=== PATIENT | male | born 1980 | race Two or more races ===

== ENCOUNTER 2021-09-27 12:47 | Emergency (ER) | payer MEDICAID, SELFPAY ==
[2021-09-27 12:51] VITALS: BP 193/111; PULSE 114; RESP 18; TEMP 36.9; O2SAT 99
[2021-09-27 13:49] VITALS: BP 193/111; PULSE 102; RESP 17; TEMP 36.9; O2SAT 99
--- NOTE | 2021-09-27 15:06 | ED.URI ---
HPI - URI/Sore Throat General Chief Complaint: Upper Respiratory Infection Stated Complaint: uri Time Seen by Provider: 09/27/21 13:50 Source: patient Mode of arrival: ambulatory Limitations: no limitations History of Present Illness HPI Narrative: 41-year-old with no major medical problems here with complaints of flulike symptoms for past few days. Patient states the first 2 days he had fever since last night he had not spiked a fever complains of sore throat and body aches at this time. He denies cough or shortness of breath. He also mentions that he has been checking his blood oxygen levels which are about 95 to 100%. MD elicited complaint: fever, cough, sore throat and nasal congestion Onset (ago): day(s) (3) Severity: mild Exacerbating factors: nothing Relieving factors: nothing Associated symptoms: fever Treatments prior to arrival: none Related Data Home Medications Medication Instructions Recorded Confirmed No Home Medications 09/27/21 09/27/21 Allergies Allergy/AdvReac Type Severity Reaction Status Date / Time No Known Allergies Allergy Verified 09/27/21 13:44 Review of Systems Review of Systems: All systems reviewed & are unremarkable except as noted in HPI and below Constitutional: Constitutional: Reports no additional constitutional complaints Eyes: Eyes: Reports no additional eye complaints ENT: Reports system reviewed and no additional complaints, except as documented Cardiovascular: Cardiovascular: Reports no additional cardiovascular complaints Respiratory: Respiratory: Reports as per HPI Gastrointestinal: Gastrointestinal: Reports no additional gastrointestinal complaints Musculoskeletal: Musculoskeletal: Reports no additional musculoskeletal complaints Integumentary/Breasts: Skin/Breast: Reports system reviewed and no additional complaints, except as docu Neurologic: Reports system reviewed and no additional complaints, except as documented Exam Narrative: GENERAL: Well-appearing, well-nourished, and in no acute distress. HEAD: Normocephalic, atraumatic. EYES: PERRLA and EOMI.. NECK: Supple. CHEST: Clear to auscultation. No respiratory distress. HEART: Regular rate and rhythm. No murmur heard. Normal peripheral pulses. EXTREMITIES: Normal range of motion. No edema. SKIN: Warm, dry, no rash. NEURO: No focal deficits. Alert and oriented x3. PSYCH: Normal mood and affect. Course Course Emergency Course: Inform patient about influenza screen will do RT-PCR for Covid. Advised him to stay quarantine till then. Vital Signs Vital signs: Vital Signs Temperature 36.9 C 09/27/21 12:51 Pulse Rate 114 H 09/27/21 12:51 Respiratory Rate 18 09/27/21 12:51 Blood Pressure 193/111 H 09/27/21 12:51 Pulse Oximetry 99 09/27/21 12:51 Temperature 36.9 C 09/27/21 13:49 Pulse Rate 102 H 09/27/21 13:49 Respiratory Rate 17 09/27/21 13:49 Blood Pressure 193/111 H 09/27/21 13:49 Pulse Oximetry 99 09/27/21 13:49 MDM - URI/Sore Throat Lab Data Labs: Influenza A Screen Negative Reference Range: Negative Influenza B Screen Negative Reference Range: Negative Discharge Plan Discharge Clinical Impression: Acute viral syndrome Patient Disposition: Home, Self-Care Condition: Stable Instructions: Antibiotic Form, Viral Syndrome (ED) Additional Instructions: Drink plenty of fluids take Tylenol ibuprofen for fever body aches, stay quarantine until your Covid results are out. Prescriptions: No Action No Home Medications RF: 0 Follow-up/Referrals: Nelson Darby MD [Physician] - PHYSICIAN,BOTTLE BOOTH ATTENDANT [Primary Care Provider] - Time of Disposition: 15:09
[2021-09-27 15:20] VITALS: BP 180/72; PULSE 87; RESP 18; TEMP 36.9; O2SAT 97
[2021-09-28 02:21] LABS: SARS-CoV-2 RNA PCR Positive
== END 2021-09-27 15:21 | disposition home or self-care (01) ==
PROVIDERS: Emergency Provider Family Medicine
DX: U07.1 COVID-19 (principal)
CPT/HCPCS: 87804; 99283; C9803; U0003; U0005

== ENCOUNTER 2021-10-02 19:28 | Emergency (ER) | payer MEDICAID, SELFPAY ==
--- NOTE | 2021-10-02 19:36 | PC.NURSE ---
Pt walks out prior to being triaged.
== END 2021-10-03 04:44 | disposition left against medical advice (07) ==
LOC: ANHED 19:44
DX: Z53.21 Procedure and treatment not carried out due to patient leaving prior to being seen by health care provider (principal)
CPT/HCPCS: 99199

== ENCOUNTER 2021-10-03 02:47 | Emergency (ER) | payer MEDICAID, SELFPAY ==
[2021-10-03] VITALS (31 sets, daily range): BP systolic 127–172; BP diastolic 81–103; PULSE 88–133; RESP 11–25; TEMP 36.6–37.9; O2SAT 93–98
--- NOTE | ~2021-10-03 | XR_ITS ---
EXAMINATION: XR chest 1V portable DATE: 10/03/2021 03:48 INDICATION: Chest pain. TECHNIQUE: A single frontal view of the chest was obtained on 2 radiographs. COMPARISON: Chest CT 10/03/2021 FINDINGS: There are patchy airspace opacities in all right lung zones and left mid and lower lung zon es. No pleural effusion or pneumothorax. The heart size is normal. IMPRESSION: 1. Diffuse lung disease, right worse than left, consistent with COVID-19 pneumonia. Reviewed, dictated and finalized at [facility]. [employer] IMPRESSION: 1. Diffuse lung disease, right worse than left, consistent with COVID-19 pneumo raymundo.
--- NOTE | ~2021-10-03 | CT_ITS ---
EXAMINATION: CTA chest PE protocol DATE: 10/03/2021 06:09 INDICATION: Shortness of breath. Elevated d-dimer. Covid-positive on 09/27/2021 TECHNIQUE: Computed tomography angiography (CTA) of the chest was performed with 100 mL Omnipaque-350 intravenous contrast timed to evaluate the pulmonary arteries. Coronal maximum intensity projection 3D-reconstructions were created by the technologist. Automated exposure control and iterative reconst ruction technique were employed. Exam dose: 532.80 mGy-cm total exam DLP. COMPARISON: Portable AP chest on 09/2021 FINDINGS: There is diagnostic contrast enhancement of the pulmonary arteries and no evidence of pulmo nary embolism. No thoracic aortic aneurysm or dissection. Normal heart size. No pericardial or pleural effusion. There are scattered patchy infiltrates throughout all lobes of both lungs, consistent with bilateral Covid pneumonia. No hilar or mediastinal mass lesion or lymphadenopathy. Small sliding hiatal hernia. Adrenal glands are normal. Included upper abdominal structures are unremarkable. Skeletal structures are unremarkable. IMPRESSION: Scattered patchy bilateral pulmonary infiltrates consistent with bilateral Covid pneumon ia No evidence of pulmonary embolism Small sliding hiatal hernia Reviewed, dictated and finalized at [facility]. Reviewed, dictated and finalized at location [facility]. 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
--- NOTE | 2021-10-03 03:22 | ED.GENADULT ---
HPI - General Adult General Chief complaint: Upper Respiratory Infection Stated complaint: COVID + 09/25, my heart is beating hard Time Seen by Provider: 10/03/21 03:18 Source: patient Mode of arrival: ambulatory Limitations: no limitations History of Present Illness HPI narrative: Patient is a 41-year-old male complaining of elevated blood pressure and palpitations started today. Patient states that his palpitations resolved. Patient denies any chest pain, shortness of breath, abdominal pain, nausea, vomiting, or diaphoresis. Related Data Allergies Allergy/AdvReac Type Severity Reaction Status Date / Time No Known Allergies Allergy Verified 10/03/21 02:58 Review of Systems Review of Systems: All systems reviewed & are unremarkable except as noted in HPI and below Constitutional: Constitutional: Denies body ache(s), Denies chills, Denies excessive sweating, Denies fatigue, Denies fever(s), Denies headache(s), Denies lethargy, Denies malaise, Denies weakness and Denies weight loss Eyes: Eyes: Denies blurry vision, Denies change in vision and Denies loss of vision ENT: Denies dizziness, Denies ear discharge, Denies headache(s), Denies lip swelling, Denies epistaxis, Denies nasal congestion, Denies neck pain, Denies throat swelling and Denies tongue swelling Cardiovascular: Cardiovascular: Denies chest pain, Denies chest pain at rest, Denies chest pain with activity, Denies diaphoresis, Denies edema, Denies irregular heart rhythm, Denies lightheadedness, Denies dyspnea and Denies dyspnea on exertion Respiratory: Respiratory: Denies chest congestion, Denies cough, Denies hemoptysis, Denies dyspnea and Denies dyspnea on exertion Gastrointestinal: Gastrointestinal: Denies abdominal pain, Denies melena, Denies hematochezia, Denies diarrhea, Denies nausea, Denies vomiting and Denies hematemesis Musculoskeletal: Musculoskeletal: Denies abnormal gait, Denies deformity, Denies joint swelling, Denies limited range of motion, Denies neck pain and Denies numbness Neurologic: Denies Abnormal speech present, Denies abnormal gait, Denies confusion, Denies dizziness, Denies headache(s), Denies focal weakness, Denies loss of vision, Denies numbness, Denies Other visual disturbances, Denies Sensory deficit (Neuro) and Denies weakness Psychiatric: Psychiatric: Denies confusion, Denies depression, Denies auditory hallucinations, Denies homicidal ideation and Denies suicidal ideation Endocrine: Endocrine: Denies cold intolerance, Denies excessive sweating, Denies fatigue, Denies heat intolerance and Denies palpitations Hematologic/Lymphatic: Hematologic/Lymphatic: Denies easy bleeding and Denies easy bruising Allergic/Immunologic: Allergic/Immunologic: Denies lip swelling, Denies throat swelling and Denies tongue swelling PMFSH Comments Past medical history: None Family history: Hypertension Social history: Non-smoker no EtOH or drug use Exam Const: General: cooperative, healthy appearing, comfortable, no acute distress, well developed, alert and awake; No confusion Orientation/consciousness: oriented to person, oriented to place, oriented to time, patient oriented x3 and No confusion Limitations: no limitations HENMT: Head: normal to inspection, normocephalic and atraumatic Ears: hearing grossly normal bilaterally, TM normal on the right and TM normal on the left General nose exam: Normal external nose present, Normal nares present and No nasal discharge present Face and sinus: normal facial exam Mouth: Yes Normal oral and palatal mucosa present, Yes lip normal, Yes tongue normal and Yes oropharynx normal Throat: posterior oropharynx normal, tonsils normal and uvula midline Eyes: General: appearance normal, both eyes and all related structures Pupils: Equal, round and reactive pupils present EOM: EOMs intact bilaterally Neck: Neck: normal visual inspection, full ROM, no lymphadenopathy and no meningeal signs Chest: Chest palpation & inspec
--- NOTE | 2021-10-03 03:28 | ECG_ITS ---
Measurements Intervals [place] Rate: 111 P: 73 RI: 139 QRS: 12 QRSD: 91 T: -22 QT: 310 QTc: 423 Interpretive Statements SINUS TACHYCARDIA POSSIBLE LEFT ATRIAL ENLARGEMENT BORDERLINE T WAVE ABNORMALITY- INF/LAT LEADS BASELINE ARTIFACT- I, II, III, AVR, AVL, AVF ABNORMAL ECG Electronically Signed On 10-03-2021 6:25:34 MANAGER ENGLISH by Efrain Mckeon D.O.
[2021-10-03] MEDS: ACETAMINOPHEN 500 MG TABLET 1000 MG PO (04:10)
[2021-10-03] MEDS: SODIUM CHLORIDE 0.9% IV 1,000 ML 999 ML IV CONT (04:11)
[2021-10-03 04:14] LABS: Basophils Percent Auto 0.2 % (0.2-1.2); Hematocrit 44.9 % (42.0-52.0); Hemoglobin 15.9 g/dL (14.0-18.0); Immature Granulocyte Absolute 0.03 K/mm3 (0.00-0.031); Immature Granulocyte Percent A 0.3 % (0-0.5); Immature Platelet Fraction Pct 5.7 % (0.9-11.2); Lymphocytes Absolute Auto 1.56 K/mm3 (0.9-3.2); Lymphocytes Percent Auto 17.5 % (18.3-44.2); Mean Corpuscular HGB Conc 35.4 g/dl (32-36); Mean Corpuscular Hemoglobin 28.4 pg (26-34); Mean Corpuscular Volume 80.3 fl (80-100); Monocytes Absolute Auto 1.2 K/mm3 (0.1-0.6); Monocytes Percent Auto 13.1 % (2.6-8.5); Neutrophils Absolute Auto 6.1 K/mm3 (1.3-6.7); Neutrophils Percent Auto 68.9 % (45.5-73.1); Platelet Count Result 146 k/mm3 (150-375); Red Blood Count 5.59 M/mm3 (4.6-6.20); Red Cell Distribution Width 12.2 % (11.5-14.5); White Blood Count 8.9 K/mm3 (4.5-10.0)
[2021-10-03 04:23] LABS: Alanine Aminotransferase 38 U/L (4-50); Albumin Level 4.5 g/dL (3.5-5.1); Alkaline Phosphatase 48 U/L (38-126); Anion Gap 12 mmol/L (8-16); Aspartate Amino Transferase 40 U/L (17-59); Bilirubin,Total 0.5 mg/dL (0.2-1.3); Blood Urea Nitrogen 10 mg/dL (9-20); Calcium 8.9 mg/dL (8.4-10.2); Carbon Dioxide 25 mmol/L (22-30); Chloride 97 mmol/L (98-107); Estimated CRCL calculation 116 ml/min; Estimated Glomerular Filt Rate > 60; Glucose 142 mg/dL (65-110); Potassium 3.6 mmol/L (3.4-5.0); Sodium 134 mmol/L (137-145)
[2021-10-03 04:24] LABS: D Dimer 0.82 ug/mL (<0.48)
[2021-10-03 04:35] LABS: Troponin I < 0.012 ng/mL (0.000-0.034)
== END 2021-10-03 07:30 | disposition home or self-care (01) ==
PROVIDERS: Emergency Provider Emergency Medicine
DX: U07.1 COVID-19 (principal); J12.82 Pneumonia due to coronavirus disease 2019; R00.2 Palpitations; R03.0 Elevated blood-pressure reading, without diagnosis of hypertension; R00.0 Tachycardia, unspecified; R94.31 Abnormal electrocardiogram [ECG] [EKG]
CPT/HCPCS: 36415; 71045; 71275; 80053; 84484; 85025; 85055; 85380; 93005; 96360; 96361; 99284; A9270; J7030; Q9967

== ENCOUNTER 2021-10-05 18:24 | Emergency (ER) | payer MEDICAID, SELFPAY ==
[2021-10-05] VITALS (7 sets, daily range): BP systolic 144–184; BP diastolic 90–95; PULSE 102–129; RESP 14–22; TEMP 36.6–37; O2SAT 95
--- NOTE | ~2021-10-05 | XR_ITS ---
EXAMINATION: XR chest 1V portable EXAM DATE: 10/05/2021 20:40 INDICATION: Chest Pain, COVID +, SOB TECHNIQUE: Portable AP frontal chest x-ray was obtained. Comparison is made to prior examination from 10/03/2021. FINDINGS: There is moderate amount of right-sided, small to moderate amount of left-sided ill-defined peripheral predominant airspace disease, distribution is consistent with COVID pneumonia. No pneumot horax or pleural effusion. Mild to moderate lower thoracic dextroscoliosis. Cardiomediastinal silhoue tte is normal. IMPRESSION: Moderate right, small to moderate left COVID pneumonia, some progression compared to 2 d ays ago. Reviewed, dictated and finalized at location [facility]. 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
--- NOTE | 2021-10-05 19:39 | ED.SOB ---
HPI - SOB/Dyspnea General Chief Complaint: Shortness of Breath/Dyspnea Stated Complaint: covid +, sob Time Seen by Provider: 10/05/21 19:34 Source: patient Mode of arrival: ambulatory Limitations: no limitations History of Present Illness HPI Narrative: Patient is a 41-year-old male complaining of shortness of breath, was seen here 2 days ago and was diagnosed with Covid pneumonia. Patient had labs, chest x-ray and CTA of his chest done 2 days ago when I treated and evaluated him. His labs were within normal limits. CTA of his chest was negative for PE, positive for groundglass opacity, Covid pneumonia. Patient tested positive for Covid 1 week ago. Patient denies any chest pain, abdominal pain, nausea, vomiting or diarrhea. Related Data Allergies Allergy/AdvReac Type Severity Reaction Status Date / Time No Known Allergies Allergy Verified 10/03/21 02:58 Review of Systems Review of Systems: All systems reviewed & are unremarkable except as noted in HPI and below Constitutional: Constitutional: Denies chills, Denies excessive sweating, Denies fatigue, Denies headache(s), Denies lethargy, Denies malaise, Denies weakness and Denies weight loss Eyes: Eyes: Denies blurry vision, Denies change in vision and Denies loss of vision ENT: Denies dizziness, Denies ear discharge, Denies headache(s), Denies lip swelling, Denies epistaxis, Denies nasal congestion, Denies neck pain, Denies throat swelling and Denies tongue swelling Cardiovascular: Cardiovascular: Denies chest pain, Denies chest pain at rest, Denies chest pain with activity, Denies diaphoresis, Denies rapid heart rate, Denies edema, Denies irregular heart rhythm, Denies lightheadedness and Denies palpitations Respiratory: Respiratory: Denies chest congestion and Denies hemoptysis Gastrointestinal: Gastrointestinal: Denies abdominal pain, Denies melena, Denies hematochezia, Denies diarrhea, Denies nausea, Denies vomiting and Denies hematemesis Musculoskeletal: Musculoskeletal: Denies abnormal gait, Denies deformity, Denies joint swelling, Denies limited range of motion, Denies neck pain and Denies numbness Neurologic: Denies Abnormal speech present, Denies abnormal gait, Denies confusion, Denies dizziness, Denies headache(s), Denies focal weakness, Denies loss of vision, Denies numbness, Denies Other visual disturbances, Denies Sensory deficit (Neuro) and Denies weakness Psychiatric: Psychiatric: Denies confusion, Denies depression, Denies auditory hallucinations, Denies homicidal ideation and Denies suicidal ideation Endocrine: Endocrine: Denies cold intolerance, Denies excessive sweating, Denies fatigue, Denies heat intolerance and Denies palpitations Hematologic/Lymphatic: Hematologic/Lymphatic: Denies easy bleeding and Denies easy bruising Allergic/Immunologic: Allergic/Immunologic: Denies lip swelling, Denies throat swelling and Denies tongue swelling PMFSH Comments Past medical history: Hypertension Family history: Hypertension Social history: Non-smoker no EtOH or drug use Exam Const: General: cooperative, healthy appearing, comfortable, no acute distress, well developed, alert and awake; No confusion Orientation/consciousness: oriented to person, oriented to place, oriented to time, patient oriented x3 and No confusion Limitations: no limitations HENMT: Head: normal to inspection, normocephalic and atraumatic Ears: hearing grossly normal bilaterally, TM normal on the right and TM normal on the left General nose exam: Normal external nose present, Normal nares present and No nasal discharge present Face and sinus: normal facial exam Mouth: Yes Normal oral and palatal mucosa present, Yes lip normal, Yes tongue normal and Yes oropharynx normal Throat: posterior oropharynx normal, tonsils normal and uvula midline Eyes: General: appearance normal, both eyes and all related structures Pupils: Equal, round and reactive pupils present EOM: EOMs intact bilaterally Neck: Ne
[2021-10-05] MEDS: ALBUTEROL SULFATE NEB 2.5 MG/0.5 ML INH 5 MG INHALATION (20:13)
[2021-10-05] MEDS: IPRATROPIUM BR 0.02% INH SOLN 0.5 MG/2.5 ML VIAL INHALATION (20:14)
[2021-10-05] MEDS: DEXAMETHASONE SOD PHOS INJ 4 MG/ML VIAL 6 MG IV PUSH (20:22)
[2021-10-05 20:28] LABS: Alveolar/Arterial O2 Gradient 36.4 mmHg; Base Excess ABG 0.1 mEq/l (+/-2.0); Carboxyhemoglobin 0.6 % THb (0-2.0); Fractional Inspired Oxygen 21 %; HCO3 ABG 23.4 mEq/l (22.0-26.0); Oxygen Content ABG 19.4 %vol (16.0-22.0); Oxygen Saturation ABG 95.3 % (95.0-100.0); Oxyhemoglobin 93.4 % THb (90.0-100.0); PCO2 ABG 34.5 mmHg (35.0-45.0); PO2 FiO2 Ratio Arterial Blood 3.43 %; Total Hemoglobin 14.8 g/dL (12.0-18.0)
[2021-10-05 20:29] LABS: Device ROOM AIR; Modified Allen's Test Pass; Site Drawn RIGHT RADIAL
== END 2021-10-05 22:30 | disposition home or self-care (01) ==
PROVIDERS: Emergency Provider Emergency Medicine
DX: U07.1 COVID-19 (principal); J12.82 Pneumonia due to coronavirus disease 2019; I10 Essential (primary) hypertension
CPT/HCPCS: 36600; 71045; 82375; 82805; 83050; 94640; 96374; 99284; J1100

== ENCOUNTER 2024-01-30 22:01 | Emergency (ER) | payer OTHER, SELFPAY ==
[2024-01-30 22:06] VITALS: BP 162/101; PULSE 88; RESP 16; TEMP 36.5; O2SAT 97
--- NOTE | 2024-01-30 22:34 | ED.EYEPROB ---
HPI - Eye Problem General Chief complaint: Eye Problems Stated complaint: stuck something in right Time Seen by Provider: 01/30/24 22:16 History of Present Illness HPI Narrative: 43-year-old male presents to emergency department for redness to his right eye and concern for foreign body. Patient states 2 days ago he woke up and noticed that the lateral aspect of his right eye was very red. States today he felt like he saw something in his eye became concerned which prompted him to come to the ED. 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 He denies any trauma or injury to the eye. He denies vision changes, headache. Patient does endorse a history of white coat syndrome and takes propranolol as needed before office visits. Did state he took a dose of propranolol prior to coming to the ER today. Related Data Allergies Allergy/AdvReac Type Severity Reaction Status Date / Time No Known Allergies Allergy Verified 10/03/21 02:58 Review of Systems Review of Systems: CONSTITUTIONAL: Denies fever, chills, or sweats. EYES: Denies visual changes, redness, or discharge. ENT: See HPI CARDIOVASCULAR: Denies chest pain, palpitations, or edema. RESPIRATORY: Denies cough or dyspnea. GASTROINTESTINAL: Denies abdominal pain, nausea, vomiting, or diarrhea. GENITOURINARY: Denies dysuria or hematuria. SKIN: Denies rash or itching. MUSCULOSKELETAL: Denies back pain, joint pain, or myalgia. NEUROLOGIC: Denies headache, numbness, or weakness. PSYCHIATRIC: Denies anxiety or depression. Exam Narrative: GENERAL: Well-appearing, well-nourished, and in no acute distress. HEAD: Normocephalic, atraumatic. EYES: PERRLA and EOMI. R eye with lateral subconjunctival hemorrhage. No hyphema. Fluorescein staining shows no foreign body, ulceration or lesion. There is a small pinpoint more raised area around the 10 o'clock position that appears to be a blood vessel. There is no evidence of open globe and negative Dc sign ENT: Nares clear, no rhinorrhea or epistaxis. Mucous membranes moist. NECK: Supple. EXTREMITIES: Normal range of motion. No edema. SKIN: Warm, dry, no rash. NEURO: No focal deficits. Alert and oriented x3 Course Vital Signs Vital signs: Vital Signs Temperature 97.7 F 05/02/24 22:06 Pulse Rate 88 01/30/24 22:06 Respiratory Rate 16 01/30/24 22:06 Blood Pressure 162/101 H 01/30/24 22:06 Pulse Oximetry 97 01/30/24 22:06 Oxygen Delivery Room Air 01/30/24 22:06 Temperature 97.7 F 01/30/24 22:06 Pulse Rate 88 01/30/24 22:06 Respiratory Rate 16 01/30/24 22:06 Blood Pressure 162/101 H 01/30/24 22:06 Pulse Oximetry 97 01/30/24 22:06 Oxygen Delivery Room Air 01/30/24 22:06 MDM - Eye Problem MDM Narrative Medical decision making narrative: 43-year-old male presents to emergency department for red eye and concerns for foreign body. See HPI for further history. Triage vital significant for blood pressure 162/101. Patient does endorse a history of white coat syndrome and takes propranolol as needed. Exam significant for subconjunctival hemorrhage. Fluorescein staining does not show any evidence of lesion or ulcer, no foreign body. No evidence of open globe, negative Dc sign. Visual acuity is 20/20 bilaterally. Discussed Education on subconjunctival hemorrhages and close Ophthalmology follow-up. Strict ED return precautions discussed. Patient is agreeable with the plan verbalized understanding. Discharged in stable condition. Discharge Plan Discharge Clinical Impression: Subconjunctival hemorrhage Qualifiers: Laterality: right Qualified Code(s): H11.31 - Conjunctival hemorrhage, right eye Patient Disposition: Home, Self-Care Condition: Stable Instructions: Antibiotic Form Additional Instructions: You were evaluated in the emergency department for redness to your eye. Your exam is consistent with a subconjunctival h
[2024-01-30 22:49] VITALS: BP 180/95; PULSE 93; RESP 15; O2SAT 95
== END 2024-01-30 22:51 | disposition home or self-care (01) ==
PROVIDERS: Emergency Provider Physician Assistant; PCP Emergency Medicine
DX: H11.31 Conjunctival hemorrhage, right eye (principal)
CPT/HCPCS: 99283